=== PATIENT | female | born 1980 | race Caucasian/White ===

== ENCOUNTER 2018-02-11 00:14 | Observation (INO) | payer SELFPAY ==
[2018-02-11 00:46] LABS: #Basophils 0.1 thou/uL (0.0-0.2); #Eosinphils 0.1 thou/uL (0.0-0.7); #Lymphocytes 3.2 thou/uL (1.20-3.40); #Monocytes 0.6 thou/uL (0.11-0.59); %Basophils 0.6 % (0.0-1.0); %Lymphocytes 32.6 % (21.0-51.0); %Monocytes 5.6 % (0.0-10.0); %Neutrophils 60.2 % (42.0-75.0); Hemoglobin 13.8 g/dL (12.0-16.0); Mean Corpuscular HGB CONC 35.7 g/dL (32.0-36.0); Mean Corpuscular Hemoglobin 33.5 pg (27.0-31.0); Mean Corpuscular Volume 93.7 fl (81.0-99.0); Mean Platelet Volume 6.1 fL (7.4-10.4); Platelet Count 285 thou/uL (130-400); RBC Distribution Width 11.7 % (11.5-14.5); Red Blood Cell (RBC) Count 4.13 mill/uL (4.20-5.40); White Blood Cell (WBC) Count 9.9 thou/uL (4.8-10.8)
[2018-02-11 01:06] LABS: ALT (SGPT) 41 U/L (8-55); AST (SGOT) 25 U/L (5-34); Albumin 3.8 g/dL (3.5-5.0); Alkaline Phosphatase 78 U/L (40-150); Anion Gap 11 mmol/L (10-20); BUN (Urea Nitrogen) 10 mg/dL (7.0-18.7); Bilirubin, Total 0.3 mg/dL (0.2-1.2); Calc. Creatinine Clearance 0 mL/min (70-130); Calcium 8.6 mg/dL (7.8-10.44); Carbon Dioxide 24 mmol/L (22-29); Chloride 107 mmol/L (98-107); Estimated GFR-MDRD Greater than 90; Globulin 2.5 g/dL (2.4-3.5); Glucose 105 mg/dL (70-105); Potassium 3.6 mmol/L (3.5-5.1); Protein, Total 6.3 g/dL (6.0-8.3); Sodium 138 mmol/L (136-145)
[2018-02-11] MEDS ORDERED: Magnesium Sulfate 2 GM/100 ML BAG ONE (01:06)
[2018-02-11] MEDS ORDERED: Lorazepam 2 MG/ML VIAL ONE ×2 (01:08→01:31)
[2018-02-11] MEDS ORDERED: cefTRIAXone\\ROCEPHIN 2 GM VIAL ONE (02:16)
[2018-02-11] MEDS ORDERED: Sodium Chloride 0.9% 100 ML ONE (02:16)
[2018-02-11 02:49] LABS: CSF Source CSF; Clarity Clear (Clear); Tube # 1; WBC/NonHematics Count - Manual 1 /cumm (0-5)
[2018-02-11 02:50] LABS: CSF Source CSF; Clarity Clear (Clear); RBC Count - Manual 1 /cumm (None Seen); RBC Count - Manual 825 /cumm (None Seen); Tube # 4; WBC/NonHematics Count - Manual 0 /cumm (0-5)
[2018-02-11] MEDS ORDERED: Ondansetron HCl/PF 4 MG/2 ML Vial IVP PRN (03:04)
[2018-02-11] MEDS ORDERED: Acetaminophen 325 MG TAB PO PRN ×2 (03:04→07:26)
[2018-02-11] MEDS ORDERED: HYDROcodone/Acetaminophen 5/325 mg Tablet PO PRN ×2 (03:04)
[2018-02-11] MEDS ORDERED: Ondansetron ODT 4 MG TAB SL PRN (03:04)
[2018-02-11 03:06] LABS: CSF, Glucose 63 mg/dl (40-70); CSF, Protein 30 mg/dL (15-40)
[2018-02-11 03:14] LABS: Color Of CSF Supernatant COLORLESS (Colorless); Unspun CSF Color COLORLESS (Colorless)
[2018-02-11] MEDS ORDERED: Vancomycin HCl 1 GM in Premix Bag 1 BAG IVPB SCH (03:15)
[2018-02-11 03:21] LABS: Tube # 2
[2018-02-11 03:46] VITALS: TEMP 97.6
[2018-02-11] MEDS ORDERED: Ondansetron ODT 4 MG TAB PO PRN (07:26)
[2018-02-11] MEDS ORDERED: Ketorolac Tromethamine 30 MG/ML VIAL IVP SCH (07:30)
[2018-02-11 08:15] VITALS: BP 145/74
--- NOTE | 2018-02-11 09:53 | DIS ---
DATE OF ADMISSION: 02/11/2018 DATE OF DISCHARGE: 02/11/2018 PRIMARY CARE PROVIDER: Dr. De La Torre. DISCHARGE DISPOSITION: Discharged home. FINAL DIAGNOSES: Headache, syncope, anxiety, depression, tobacco abuse. DISCHARGE MEDICATIONS: None. HOSPITAL COURSE: The patient seen in [facility], had a CT scan of the brain which was read by [facility] emergency room doctor is perhaps abnormal. It has been read by the radiologist as normal. She wa s referred here. She had a lumbar puncture, which reveals no abnormality. Her laboratory is unremar kable and done a complete history and physical on this lady. She is neurologically intact. I have d iscussed medications for her headache with her and recommended [id number] Motrin, Aleve. CONSULTATIONS: None. PROCEDURES: Lumbar puncture done in the emergency room. CODE STATUS: FULL. DIET: As tolerated. ALLERGIES: PENICILLIN. FOLLOWUP: With primary care doctor next week. No consultations.
--- NOTE | 2018-02-11 10:51 | HP ---
PRIMARY CARE PROVIDER: Dr. De La Torre. HISTORY OF PRESENT ILLNESS: The patient seen in [facility] and transferred to [facility], referred to [facility]. The patient has had a headache off and on for 2 days. She states she took a shower and woke up on the floor. Her chin was sore. She says she has had some blurred vision, no double vision or flashing lights. She said the left side feels weak. She has had no swallowing difficulty. She has had some nausea with the headache. She states she passes out when she has high pain. PAST MEDICAL HISTORY: Old chart lists hypertension and dyslipidemia in the past. She states she has no major medical problems. MEDICATIONS: Takes no medicines. ALLERGIES: PENICILLIN causes a rash. PAST SURGICAL HISTORY: Cholecystectomy, hysterectomy and . FAMILY HISTORY: Father has diabetes and hypertension. Mother has coronary artery disease and hypertension. SOCIAL HISTORY: She is . States she smokes half pack a day. It is pertinent to note at this time when I first went in to see her. This morning at 7:15, she was already out smoking, drinks no alcohol. Denies illicit drugs. REVIEW OF SYSTEMS: GENERAL: No fever or chills, some photophobia with headache. As mentioned before, she states she passes out when she has high pain. EYES: Blurry vision. No double vision or flashing lights. EAR, NOSE AND THROAT: No ear pain or drainage. No nasal bleeding. No trouble swallowing. CARDIAC: No chest pain, orthopnea or paroxysmal nocturnal dyspnea. RESPIRATORY: No cough, wheezing or asthma. GASTROINTESTINAL: Nausea with headache. No vomiting. No abdominal pain, diarrhea or constipation. GENITOURINARY: No hematuria or dysuria. MUSCULOSKELETAL: She states her legs swell at times. No specific pain in joints or muscles. NEUROLOGIC: No strokes, seizures or focal weakness. PSYCHIATRIC: She states she has anxiety, depression, currently on no medicines. SKIN: She says she has sore under her chin where she fell. HEME/LYMPH: No tender or swollen lymph nodes in axilla, inguinal or cervical area. PHYSICAL EXAMINATION: GENERAL: Alert, oriented, in no distress, covers her eyes when the lights on, but this is only intermittent. VITAL SIGNS: Temperature 97.6, pulse 79, respirations 18, room air saturation 94%, blood pressure 123/79. HEENT: Examination of her head, eyes, ears, nose and throat reveal pupils equal , round, and reactive to light. Extraocular movements are intact. Sclerae are white. Tympanic membranes clear. Nose clear. Oral mucous membranes are wet. NECK: Supple, without jugular venous distention, adenopathy or thyromegaly. CHEST: Clear to auscultation and percussion. HEART: Regular rate and rhythm. First and second heart sounds are clear. There are no appreciated murmurs or gallops. ABDOMEN: Soft, bowel sounds are normal. There is no hepatosplenomegaly, no masses, no rebound. EXTREMITIES: Reveal no cyanosis, clubbing or edema. PULSES: Carotid, radial, femoral, and dorsalis pedis pulses intact. SKIN: Warm and dry without bruises or rash. Specifically, there is no focal abrasion, bruising, etc. on her chin on her face or her arms. NEUROLOGIC: Cranial nerves II-XII are intact. Deep tendon reflexes intact. Toes downgoing. Moves all extremities. Strength grossly symmetric although she does giveaway on testing, but strength is normal when encouraged. IMAGING DATA: CT scan reviewed by me, no acute intracranial abnormality. LABORATORY DATA: CBC is normal. Comprehensive chemistry panel is normal. Spinal tap white cells 0, red cells on the first one is 1, colorless. Blood sugar 63, protein 30 and 25 red cells, but this cleared, it was colorless and clear. ADMITTING DIAGNOSES: 1. Headache. 2. Syncope. 3. Anxiety, depression. 4. Tobacco abuse. ASSESSMENT: I see no other appropriate workup in this patient. We will give her one dose of Toradol. Hopefully, she will be discharged later today. BETSEYD
== END 2018-02-11 08:16 | disposition home or self-care (01) ==
LOC: ERS 00:14 → 2SW 02:54
PROVIDERS: ADMIT Family Medicine; ATTEND Family Medicine
DX: R51 Headache (principal); R55 Syncope and collapse; F41.9 Anxiety disorder, unspecified; F32.9 Major depressive disorder, single episode, unspecified; F17.210 Nicotine dependence, cigarettes, uncomplicated; Z88.0 Allergy status to penicillin
CPT/HCPCS: 36415; 62270; 80053; 82945; 83735; 84157; 85025; 87070; 87205; 89051; 96365; 96367; 96375; 99406; G0378; J0696; J1885; J2060; J3370; J3475; J7050

== ENCOUNTER 2019-08-28 09:06 | Outpatient (CLI) | payer OTHER ==
--- NOTE | 2019-08-28 10:03 | MMO ---
Bilateral MAMMO Bilat Diag [facility]. CLINICAL HISTORY: Patient is 39 years old and is seen for diagnostic exam. The patient has the following family history of breast cancer: maternal grandmother, malignant (generic). The patient has a history of cervical cancer in 2008. VIEWS: The views performed were: bilateral craniocaudal with tomosynthesis; bilateral mediolateral oblique with tomosynthesis; and bilateral mediolateral with tomosynthesis. FILMS COMPARED: The present examination has been compared to a prior imaging study performed at [facility] on 08/28/2019. This study has been interpreted with the assistance of computer-aided detection. MAMMOGRAM FINDINGS: The breasts are heterogeneously dense, which could obscure a lesion on mammography. Finding 1: There is global asymmetry seen in the outer region of the left breast. Finding 2: There is an intramammary lymph node seen in the axillary tail of the right breast. Finding 3: There are no mammographic or sonographic abnormalities in the area of palpable concern. The patient is referred back to her clinician. Negative imaging findings should not preclude biopsy if clinical findings are suspicious. There are no suspicious masses, suspicious calcifications, or new areas of architectural distortion. IMPRESSION: FINDING 3: THERE ARE NO MAMMOGRAPHIC ABNORMALITIES IN THE AREA OF PALPABLE CONCERN. THE PATIENT IS REFERRED BACK TO HER CLINICIAN. NEGATIVE IMAGING FINDINGS SHOULD NOT PRECLUDE BIOPSY IF CLINICAL FINDINGS ARE SUSPICIOUS. THE RESULTS OF THIS EXAM WERE SENT TO THE PATIENT. ACR BI-RADS Category 2 - Benign finding MAMMOGRAPHY NOTE: 1. A negative mammogram report should not delay a biopsy if a dominant of clinically suspicious mass is present. 2. Approximately 10% to 15% of breast cancers are not detected by mammography. 3. Adenosis and dense breasts may obscure an underlying neoplasm. Reported by: MIKEY TRUJILLO MD Electonically Signed: [id number]
--- NOTE | 2019-08-28 10:13 | ULT ---
LIMITED LEFT BREAST ULTRASOUND: 08/28/2019 PROVIDED CLINICAL HISTORY: Left breast palpable abnormality. FINDINGS: Limited sonographic interrogation was performed of the left breast at the 1 o'clock position in the r egion of reported palpable concern. There is no sonographic abnormality apparent in this region. IMPRESSION: BI-RADS category 1 - negative. Negative imaging findings should not preclude further evaluation of a clinically suspicious area. The patient is referred back to her clinician. POS: OFF
== END 2019-08-28 09:07 | disposition home or self-care (01) ==
LOC: BICMAMMO 09:06
PROVIDERS: ATTEND Family Medicine
DX: N63.0 Unspecified lump in unspecified breast (principal)
CPT/HCPCS: 77066; G0279

== ENCOUNTER 2021-03-05 23:04 | Inpatient (IN) | payer OTHER ==
[2021-03-06] MEDS ORDERED: Morphine 4 MG/ML VIAL ONE (02:25)
[2021-03-06] MEDS ORDERED: Ondansetron PF 4 MG/2 ML Vial ONE ×2 (02:26→11:26)
[2021-03-06 03:16] LABS: Bilirubin Negative (Negative); Blood, Urine Negative (Negative); Glucose, Urine (Dipstick) Negative (Negative); Ketone, Urine Negative (Negative); Leukocyte Negative (Negative); Nitrite Negative (Negative); Protein, Urine (Dipstick) Negative (Neg-Trace); Urobilinogen 0.2 mg/dL (Less than 2); pH, Urine 5.5 (5.0-9.0)
[2021-03-06 03:17] LABS: Bacteria/HPF 1+ HPF (None Seen); Mucous/LPF Rare LPF (<2+); RBC/HPF 0-3 HPF (0-3); WBC/HPF 0-3 HPF (0-3)
[2021-03-06 03:18] LABS: Clarity Clear (Clear); Specific Gravity, Urine 1.018 (1.002-1.036)
[2021-03-06] MEDS ORDERED: Acetaminophen/Codeine 30-300mg Tablet PO PRN (06:04)
[2021-03-06] MEDS ORDERED: traMADol HCl 50 MG TAB PO PRN (06:04)
[2021-03-06] MEDS ORDERED: HYDROcodone/Acetaminophen 7.5/325 mg Tablet PO PRN (06:04)
[2021-03-06] MEDS ORDERED: tiZANidine HCl 4 MG TAB PO PRN (06:04)
[2021-03-06 06:14] LABS: #Basophils 0.1 thou/uL (0.0-0.2); #Eosinphils 0.2 thou/uL (0.0-0.7); #Lymphocytes 4.6 thou/uL (1.20-3.40); #Monocytes 0.7 thou/uL (0.11-0.59); #Neutrophils 8.1 thou/uL (1.40-6.50); %Basophils 0.4 % (0.0-1.0); %Eosinophils 1.2 % (0.0-10.0); %Lymphocytes 33.8 % (21.0-51.0); %Monocytes 5.4 % (0.0-10.0); %Neutrophils 59.3 % (42.0-75.0); Hemoglobin 14.8 g/dL (12.0-16.0); Mean Corpuscular HGB CONC 34.6 g/dL (32.0-36.0); Mean Corpuscular Hemoglobin 32.8 pg (27.0-31.0); Mean Corpuscular Volume 94.9 fL (78.0-98.0); Platelet Count 288 thou/uL (130-400); White Blood Cell (WBC) Count 13.7 thou/uL (4.8-10.8)
[2021-03-06 06:27] LABS: ALT (SGPT) 26 U/L (8-55); AST (SGOT) 19 U/L (5-34); Albumin 4.3 g/dL (3.5-5.0); Alkaline Phosphatase 67 U/L (40-110); Anion Gap 14 mmol/L (10-20); BUN (Urea Nitrogen) 16 mg/dL (7.0-18.7); Bilirubin, Total 0.5 mg/dL (0.2-1.2); Calc. Creatinine Clearance 0 mL/min (70-130); Calcium 9.2 mg/dL (7.8-10.44); Carbon Dioxide 22 mmol/L (22-29); Chloride 106 mmol/L (98-107); Globulin 2.8 g/dL (2.4-3.5); Glucose 94 mg/dL (70-105); Potassium 3.9 mmol/L (3.5-5.1); Protein, Total 7.1 g/dL (6.0-8.3); Sodium 138 mmol/L (136-145)
[2021-03-06 06:30] LABS: INR-International Normal Ratio 1.1; PTT 29.5 sec (22.9-36.1); Prothrombin Time 14.7 sec (12.0-14.7)
[2021-03-06 07:11] LABS: SARS-CoV-2 NAA Rapid Test Not Detected (NotDetected)
[2021-03-06] MEDS ORDERED: Thrombin 5000 UNITS/5 ML VIAL ONE (09:49)
[2021-03-06] MEDS ORDERED: Fentanyl 250 MCG/5 ML VIAL ONE (11:05)
[2021-03-06] MEDS ORDERED: Clindamycin/D5W 900 mg/50 ml Premix Bag ONE (11:12)
[2021-03-06] MEDS ORDERED: Midazolam HCl 2 mg/2 ml Vial ONE (11:12)
[2021-03-06] MEDS ORDERED: Levofloxacin 500 mg/D5W 100 ml Premix Bag ONE (11:12)
[2021-03-06] MEDS ORDERED: PHENYLEPHRINE-NS 100 MCG/ML 10 ML SYRINGE ONE (11:26)
[2021-03-06] MEDS ORDERED: Lidocaine 1% PF 5 ML VIAL ONE (11:26)
[2021-03-06] MEDS ORDERED: Ketorolac Tromethamine 30 MG/ML VIAL ONE (11:26)
[2021-03-06] MEDS ORDERED: PROPOFOL 200 MG/20 ML VIAL ONE (11:26)
[2021-03-06] MEDS ORDERED: Dexamethasone 20 MG/5 ML VIAL ONE (11:26)
[2021-03-06] MEDS ORDERED: Rocuronium Bromide 10 MG/ML (10ML VIAL) ONE (11:26)
[2021-03-06] MEDS ORDERED: Glycopyrrolate 0.2 MG/ML 5 ML SYRINGE ONE (11:26)
[2021-03-06] MEDS ORDERED: Promethazine HCl 25 MG/ML VIAL SLOW IVP PRN (13:54)
[2021-03-06] MEDS ORDERED: Promethazine HCl 25 MG/ML VIAL IM PRN (13:54)
[2021-03-06] MEDS ORDERED: HYDROmorphone 2 MG/ML VIAL SLOW IVP PRN (13:54)
[2021-03-06] MEDS ORDERED: Meperidine HCl/PF 25 MG/ML VIAL SLOW IVP PRN (13:54)
[2021-03-06] MEDS ORDERED: Morphine Sulfate 2 MG/ML SYRINGE SLOW IVP PRN (13:54)
[2021-03-06] MEDS ORDERED: PACU-Morphine 4MG/ML VIAL SLOW IVP PRN (13:54)
[2021-03-06] MEDS ORDERED: Ondansetron HCl/PF 4 MG/2 ML Vial IVP PRN (13:54)
[2021-03-06] MEDS ORDERED: Ketorolac Tromethamine 30 MG/ML VIAL IVP PRN (13:54)
[2021-03-06] MEDS ORDERED: Fentanyl 100 MCG/2 ML VIAL ONE ×2 (14:10→14:35)
[2021-03-06] MEDS ORDERED: HYDROmorphone 0.5 MG/0.5 ML SYRINGE ONE (14:47)
[2021-03-06] MEDS ORDERED: Ondansetron PF 4 MG/2 ML Vial IVP PRN (16:51)
[2021-03-06] MEDS: Acetaminophen 325 MG TAB PO PRN (16:59)
[2021-03-06] MEDS: Sodium Chloride 0.9% 1,000 ML IV SCH ×2 (17:07→19:44)
[2021-03-06 17:49] VITALS: BMI 36.9
[2021-03-06] MEDS: Morphine 2 MG/ML VIAL SLOW IVP PRN (19:41)
[2021-03-07] MEDS: Acetaminophen 325 MG TAB PO PRN ×2 (00:34→07:08)
[2021-03-07] MEDS: Morphine 2 MG/ML VIAL SLOW IVP PRN ×2 (00:34→10:40)
[2021-03-07 07:49] VITALS: BP 114/70; TEMP 97.7
[2021-03-07] MEDS: Sodium Chloride 0.9% 1,000 ML IV SCH (09:33)
== END 2021-03-07 11:00 | disposition home or self-care (01) | DRG 519 ==
LOC: ERS 23:04 → SDC 03-06 09:13 → SURG A 03-06 09:14
PROVIDERS: ADMIT Surgery; ATTEND Surgery
PROC: 01NB0ZZ Release Lumbar Nerve, Open Approach (ICD-10-PCS; principal; 2021-03-06)
PROC: 0SB20ZZ Excision of Lumbar Vertebral Disc, Open Approach (ICD-10-PCS; 2021-03-06)
DX: M51.26 Other intervertebral disc displacement, lumbar region (principal); G83.4 Cauda equina syndrome; Z20.822 Contact with and (suspected) exposure to COVID-19; F17.210 Nicotine dependence, cigarettes, uncomplicated; G43.909 Migraine, unspecified, not intractable, without status migrainosus; R32 Unspecified urinary incontinence; M48.061 Spinal stenosis, lumbar region without neurogenic claudication; Z90.49 Acquired absence of other specified parts of digestive tract; Z90.710 Acquired absence of both cervix and uterus; Z85.41 Personal history of malignant neoplasm of cervix uteri
CPT/HCPCS: 36415; 72148; 76000; 80053; 81003; 85025; 85610; 85730; 96374; 96375; J1100; J1170; J1885; J1956; J2250; J2270; J2405; J2704; J3010; J3370; J3490; U0002; U0005

== ENCOUNTER 2021-09-24 16:24 | Emergency (ER) | payer OTHER ==
[2021-09-24] MEDS ORDERED: Morphine 4 MG/ML VIAL ONE (17:47)
[2021-09-24] MEDS ORDERED: Ketorolac Tromethamine 30 MG/ML VIAL ONE (17:47)
[2021-09-24 18:03] LABS: #Basophils 0.1 thou/uL (0.0-0.2); #Eosinphils 0.1 thou/uL (0.0-0.7); #Monocytes 0.6 thou/uL (0.11-0.59); #Neutrophils 4.9 thou/uL (1.40-6.50); %Basophils 0.8 % (0.0-1.0); %Eosinophils 0.8 % (0.0-10.0); %Lymphocytes 26.4 % (21.0-51.0); %Monocytes 7.7 % (0.0-10.0); %Neutrophils 64.4 % (42.0-75.0); Hemoglobin 14.2 g/dL (12.0-16.0); Mean Corpuscular HGB CONC 35.7 g/dL (32.0-36.0); Mean Corpuscular Hemoglobin 33.8 pg (27.0-31.0); Mean Corpuscular Volume 94.7 fL (78.0-98.0); Mean Platelet Volume 6.4 fL (7.4-10.4); Platelet Count 289 thou/uL (130-400); RBC Distribution Width 11.8 % (11.5-14.5); Red Blood Cell (RBC) Count 4.21 mill/uL (4.20-5.40); White Blood Cell (WBC) Count 7.5 thou/uL (4.8-10.8)
[2021-09-24 18:19] LABS: BHCG - Serum Negative (NEGATIVE); Pregs Control Background? CLEAR/WHITE (CLR/WHITE); Pregs Control Bar Appear? YES (CONTROL BAR)
[2021-09-24 18:22] LABS: ALT (SGPT) 41 U/L (8-55); AST (SGOT) 28 U/L (5-34); Albumin 4.1 g/dL (3.5-5.0); Alkaline Phosphatase 92 U/L (40-110); Anion Gap 10 mmol/L (10-20); BUN (Urea Nitrogen) 14 mg/dL (7.0-18.7); Bilirubin, Total 0.5 mg/dL (0.2-1.2); Calc. Creatinine Clearance 0 mL/min (70-130); Calcium 9.2 mg/dL (7.8-10.44); Carbon Dioxide 24 mmol/L (22-29); Chloride 107 mmol/L (98-107); Glucose 89 mg/dL (70-105); Potassium 3.7 mmol/L (3.5-5.1); Protein, Total 7.1 g/dL (6.0-8.3); Sodium 137 mmol/L (136-145)
[2021-09-24 19:23] LABS: Bilirubin Negative (Negative); Blood, Urine Negative (Negative); Clarity Clear (Clear); Glucose, Urine (Dipstick) Normal (Negative); Ketone, Urine Negative (Negative); Leukocyte Negative Leu/uL (Negative); Nitrite Negative (Negative); Pregnancy Test - Urine (BHCG) Negative (Negative); Pregu Control Background? CLEAR/WHITE (CLR/WHITE); Pregu Control Bar Appear? YES (CONTROL BAR); Protein, Urine (Dipstick) Negative (Neg-Trace); Specific Gravity 1.022 (1.002-1.036); Specific Gravity, Urine 1.022 (1.002-1.036); Urobilinogen Normal mg/dL (Less than 2)
== END 2021-09-24 20:30 | disposition home or self-care (01) ==
LOC: ERS 16:24
DX: M79.605 Pain in left leg (principal); M51.26 Other intervertebral disc displacement, lumbar region; G43.909 Migraine, unspecified, not intractable, without status migrainosus; D50.9 Iron deficiency anemia, unspecified; F17.210 Nicotine dependence, cigarettes, uncomplicated
CPT/HCPCS: 36415; 72170; 74177; 80053; 81003; 81025; 84703; 85025; 96374; 96375; J1885; J2270

== ENCOUNTER 2024-06-29 16:56 | Emergency (ER) | payer OTHER ==
[2024-06-29 17:48] LABS: #Basophils 0.07 10x3/uL (0.0-0.2); %Basophils 0.7 % (0.0-1.0); %Lymphocytes 32.6 % (21.0-51.0); %Monocytes 5.7 % (0.0-10.0); %Neutrophils 59.4 % (42.0-75.0); Hematocrit 40.6 % (36.0-47.0); Hemoglobin 14.1 g/dL (12.0-16.0); Mean Corpuscular HGB CONC 34.7 g/dL (32.0-36.0); Mean Corpuscular Hemoglobin 32.3 pg (27.0-31.0); Mean Corpuscular Volume 93.1 fL (78.0-98.0); Mean Platelet Volume 8.8 fL (7.4-10.4); Platelet Count 323 10x3/uL (130-400); Red Blood Cell (RBC) Count 4.36 mill/uL (4.20-5.40)
[2024-06-29 18:03] LABS: CRP,High Sensitivity (Inhouse) 0.38 mg/dL (< or = 0.5)
[2024-06-29 18:04] LABS: ALT (SGPT) 37 U/L (8-55); AST (SGOT) 25 U/L (5-34); Albumin 4.2 g/dL (3.5-5.0); Alkaline Phosphatase 77 U/L (40-110); Anion Gap 13 mmol/L (10-20); BUN (Urea Nitrogen) 10 mg/dL (7.0-18.7); Bilirubin, Total 0.4 mg/dL (0.2-1.2); Calc. Creatinine Clearance 0 mL/min (70-130); Calcium 9.2 mg/dL (7.8-10.44); Carbon Dioxide 23 mmol/L (22-29); Chloride 106 mmol/L (98-107); Estimated GFR 101; Globulin 3.1 g/dL (2.4-3.5); Glucose 98 mg/dL (70-105); Potassium 3.7 mmol/L (3.5-5.1); Protein, Total 7.3 g/dL (6.0-8.3); Sodium 138 mmol/L (136-145)
[2024-06-30] MEDS ORDERED: Morphine 4 MG/ML VIAL ONE (00:54)
[2024-06-30] MEDS ORDERED: Ondansetron PF 4 MG/2 ML Vial ONE (00:54)
== END 2024-06-29 19:31 | disposition left against medical advice (07) ==
LOC: ERS 16:56
DX: Z53.21 Procedure and treatment not carried out due to patient leaving prior to being seen by health care provider (principal)
CPT/HCPCS: 36415; 80053; 83605; 85025; 86141

== ENCOUNTER 2024-06-29 23:54 | Emergency (ER) | payer OTHER ==
[2024-06-30 04:26] LABS: Bacteria/HPF None Seen HPF (None Seen); Bilirubin Negative (Negative); Blood, Urine Negative (Negative); CAUTI Indications for Culture Pelvic or flank pain; Clarity Clear (Clear); Glucose, Urine (Dipstick) Normal (Negative); Ketone, Urine Negative (Negative); Leukocyte Negative Leu/uL (Negative); Nitrite Negative (Negative); Protein, Urine (Dipstick) Negative (Neg-Trace); RBC/HPF 0-3 HPF (0-3); Specific Gravity, Urine 1.008 (1.002-1.036); Squamous Epithelial 0-3 HPF (0-3); Urobilinogen Normal mg/dL (Less than 2); WBC/HPF 0-3 HPF (0-3); pH, Urine 5.5 (5.0-9.0)
[2024-06-30 04:38] LABS: Urine Culture Reflex No No
== END 2024-06-30 04:32 | disposition home or self-care (01) ==
LOC: ERS 23:54
DX: M54.50 Low back pain, unspecified (principal); M51.34 Other intervertebral disc degeneration, thoracic region; F17.210 Nicotine dependence, cigarettes, uncomplicated; I10 Essential (primary) hypertension; Z53.21 Procedure and treatment not carried out due to patient leaving prior to being seen by health care provider
CPT/HCPCS: 36415; 72146; 72148; 80053; 81001; 83605; 85025; 86141; 96374; 96375